=== PATIENT | male | born 1930 | race Caucasian/White ===

== ENCOUNTER → 2016-09-20 | Outpatient (CLI) | payer OTHER ==
[~2016-09-20] MED LIST: ASPI81TA28 PO; CHOL1CAP26 PO; FURO20TA PO; METH1CHW PO
--- NOTE | 2016-09-20 14:19 | DIAGNOSTIC IMAGING REPORT ---
ULTRASOUND LEFT LOWER EXTREMITY VENOUS CLINICAL HISTORY: Left leg pain and swelling. COMPARISON STUDY: Left lower extremity venous ultrasound dated 05/25/2015. TECHNIQUE: Real-time, grayscale, and color Doppler sonography of the deep veins of the left lower extremity was performed from the inguinal crease to the calf. Compression and augmentation were utilized. FINDINGS: There is no sonographic evidence of deep venous thrombosis identified in the left lower extremity. The common femoral, superficial femoral, and popliteal veins are patent and normally compressible. The greater saphenous vein and the profunda femoris vein at the junction with the common femoral vein are clear. The visualized calf veins are patent. IMPRESSION: There is no sonographic evidence of deep venous thrombosis identified in the left lower extremity. Electronically signed by: Clemente Gonzalez M.D. 09/20/2016 2:17 PM Dictated Date/Time: 09/20/2016 2:17 PM
== END | disposition home or self-care (01) ==
LOC: C.ULTRBC 13:26
PROVIDERS: ATTEND Family Medicine
DX: M79.605 Pain in left leg (principal)

== ENCOUNTER → 2016-10-08 | Outpatient (CLI) | payer OTHER ==
[~2016-10-08] VITALS: Ht 175.3 cm; Wt 277.0 kg
[2016-10-08 12:35] VITALS: BP 129/95; PULSE 82; Ht 175.3 cm; Wt 277.0 kg
== END | disposition home or self-care (01) ==
LOC: C.NEUR 12:11
PROVIDERS: ATTEND Internal Medicine Pulmonary Disease
DX: G47.30 Sleep apnea, unspecified (principal); I50.9 Heart failure, unspecified

== ENCOUNTER → 2017-03-04 | Outpatient (CLI) | payer OTHER ==
[2017-03-04 13:45] LABS: ALT/SGPT 33 U/L (12-78); BLOOD UREA NITROGEN 24 mg/dl (7-18); CALCIUM 9.4 mg/dl (8.5-10.1); CARBON DIOXIDE 30 mmol/L (21-32); CHLORIDE 107 mmol/L (98-107); CREATININE 0.92 mg/dl (0.60-1.40); GLUCOSE 113 mg/dl (70-99); POTASSIUM 4.2 mmol/L (3.5-5.1); SODIUM 142 mmol/L (136-145)
[2017-03-04 13:47] LABS: ALB/GLOB RATIO 1.2 (0.9-2); ALKALINE PHOSPHATASE 94 U/L (45-117); AST/SGOT 22 U/L (15-37)
[2017-03-04 14:55] LABS: ESTIMATED AVERAGE GLUCOSE 146 mg/dl; HA1C FLAG Normal (Normal)
== END | disposition home or self-care (01) ==
LOC: C.LAB 11:37
PROVIDERS: ATTEND Family Medicine
DX: E11.9 Type 2 diabetes mellitus without complications (principal); I50.9 Heart failure, unspecified

== ENCOUNTER → 2017-04-08 | Outpatient (CLI) | payer OTHER ==
[~2017-04-08] VITALS: Ht 172.7 cm; Wt 123.0 kg
[2017-04-08 13:48] VITALS: BP 127/83; PULSE 53; Ht 172.7 cm; Wt 123.0 kg
== END | disposition home or self-care (01) ==
LOC: C.NEUR 12:52
PROVIDERS: ATTEND Internal Medicine Pulmonary Disease
DX: G47.30 Sleep apnea, unspecified (principal); I51.7 Cardiomegaly; E66.9 Obesity, unspecified; R06.00 Dyspnea, unspecified

== ENCOUNTER → 2017-06-25 | Outpatient (CLI) | payer OTHER ==
--- NOTE | 2017-06-25 13:52 | DIAGNOSTIC IMAGING REPORT ---
CHEST 2 VIEWS ROUTINE CLINICAL HISTORY: DYSPNEA COMPARISON STUDY: 10/28/2016 FINDINGS: The heart is mildly enlarged. There is no failure. There is no focal pulmonary consolidation. There are no pleural effusions.[ IMPRESSION: No active disease in the chest. Electronically signed by: Mohsen Lal M.D. 06/25/2017 1:51 PM Dictated Date/Time: 06/25/2017 1:50 PM
[2017-06-25 14:55] LABS: HEMATOCRIT 44.3 % (42-52); HEMOGLOBIN 15.1 g/dL (14.0-18.0); MEAN CELL VOLUME 87.2 fL (80-100); MEAN CORPUSCULAR HEMOGLOBIN 29.7 pg (25-34); MEAN CORPUSCULAR HGB CONC 34.1 g/dl (32-36); RED CELL DISTRIBUTION WIDTH CV 13.6 % (11.5-14.5); RED CELL DISTRIBUTION WIDTH SD 43.9 fL (36.4-46.3); WHITE BLOOD COUNT 3.33 K/uL (4.8-10.8)
[2017-06-25 15:04] LABS: ALBUMIN 3.5 gm/dl (3.4-5.0); ALT/SGPT 40 U/L (12-78); BLOOD UREA NITROGEN 16 mg/dl (7-18); CALCIUM 8.9 mg/dl (8.5-10.1); CARBON DIOXIDE 29 mmol/L (21-32); CREATININE 0.94 mg/dl (0.60-1.40); GLUCOSE 118 mg/dl (70-99); POTASSIUM 3.9 mmol/L (3.5-5.1); SODIUM 141 mmol/L (136-145)
[2017-06-25 15:09] LABS: ALKALINE PHOSPHATASE 86 U/L (45-117); AST/SGOT 36 U/L (15-37); TOTAL PROTEIN 6.9 gm/dl (6.4-8.2)
[2017-06-25 15:11] LABS: MEAN PLATELET VOLUME 11.3 fL (7.4-10.4); PLATELET COUNT 93 K/uL (130-400)
[2017-06-26 13:03] LABS: HEMOGLOBIN A1C 6.9 % (4.5-5.6)
[2017-06-27 10:38] LABS: QUANTIF MITOGEN-NIL >10.00 IU/ML; QUANTIFERON NEGATIVE (NEGATIVE)
== END | disposition home or self-care (01) ==
LOC: C.RAD 12:26
PROVIDERS: ATTEND Family Medicine
DX: R06.00 Dyspnea, unspecified (principal)

== ENCOUNTER → 2017-07-07 | Outpatient (CLI) | payer OTHER ==
--- NOTE | 2017-07-07 15:51 | ECHOCARDIOGRAM REPORT ---
*NOTICE TO RECEIVING CONSTITUTION PARTY AGENCY This information is strictly Confidential and protected under [place] law. [place] law prohibits you from making any further disclosure of this information unless further disclosure is expressly permitted by the written consent of the person to whom it pertains or is authorized by law. A general authorization for the release of medical or other information is not sufficient for this purpose. Hospital accepts no responsibility if the information is made available to any other person, INCLUDING THE PATIENT. Interpretation Summary * Name: CLAUDIO LEIGH Study Date: 07/07/2017 12:38 PM BP: 131/75 mmHg * Patient Location: [facility] HR: 82 * : 1930 (M/d/yyyy) Gender: Male Height: 67 in * Age: 86 yrs Ethnicity: [place] Weight: 271 lb * Ordering Physician: Alberto Gunn * Referring Physician: Alberto Gunn * Performed By: Noni Scott RDCS * * Reason For Study: Cardiomyopathy * BSA: 2.3 m2 * -- Conclusions -- * Technically difficult study * 1. Normal LV size. Mild concentric LVH. * 2. Normal LV systolic function. LVEF 60-65%. No regional wall motion abnormalities. * 3. Normal RV size and function. * 4. No significant valvular pathology. * 5. Diastolic dysfunction. * 6. Mild pulmonary hypertension. Est PASP >45 mmHg * 7. No prior studies for comparison. Procedure Details * A complete two-dimensional transthoracic echocardiogram was performed (2D, M-mode, Doppler and color flow Doppler). Left Ventricle * The left ventricle is grossly normal size. * There is mild concentric left ventricular hypertrophy. * Ejection Fraction = 60-65%. * No regional wall motion abnormalities noted. Right Ventricle * The right ventricle is grossly normal size. * The right ventricular systolic function is normal as assessed by tricuspid annular plane systolic excursion (TAPSE) (normal >1.5 cm). Atria * The left atrium is mildly dilated. * Right atrial size is normal. * No ASD detected; PFO is not assessed. Mitral Valve * The mitral valve is grossly normal. * There is no mitral valve stenosis. * There is trace mitral regurgitation. Tricuspid Valve * The tricuspid valve is not well visualized, but is grossly normal. * There is trace tricuspid regurgitation. * Est PASP 40-45 mmHg. Aortic Valve * The aortic valve opens well. * The aortic valve is trileaflet. * No hemodynamically significant valvular aortic stenosis. * There is no significant aortic regurgitation. Pulmonic Valve * The pulmonary valve is inadequately visualized, but the Doppler data is adequate for interpretation. * There is no pulmonic valvular stenosis. * There is no pulmonic valvular regurgitation. Great Vessels * The aortic root and proximal ascending aorta are normal sized. Pericardium/Pleural * There is no pericardial effusion. Left Ventricular Diastolic Function * Diastolic dysfunction MMode 2D Measurements and Calculations IVSd 1.4 cm IVSs 1.8 cm LVIDd 4.8 cm LVIDs 3.1 cm LVPWd 1.6 cm LVPWs 1.6 cm IVS/LVPW 0.89 FS 36.0 % EDV(Teich) 108.0 ml ESV(Teich) 37.3 ml EF(Teich) 65.5 % EDV(cubed) 111.3 ml ESV(cubed) 29.2 ml EF(cubed) 73.8 % % IVS thick 28.3 % % LVPW thick 4.9 % LV mass(C)d 293.5 grams LV mass(C)dI 127.6 grams/m\S\2 LV mass(C)s 201.8 grams LV mass(C)sI 87.7 grams/m\S\2 SV(Teich) 70.8 ml SI(Teich) 30.8 ml/m\S\2 SV(cubed) 82.1 ml SI(cubed) 35.7 ml/m\S\2 Ao root diam 3.0 cm Ao root area 7.3 cm\S\2 ACS 2.2 cm LA dimension 5.4 cm LA/Ao 1.8 LVAd ap4 28.2 cm\S\2 LVLd ap4 7.9 cm EDV(MOD-sp4) 93.8 ml EDV(sp4-el) 84.8 ml LVAs ap4 12.9 cm\S\2 LVLs ap4 5.7 cm ESV(MOD-sp4) 29.2 ml ESV(sp4-el) 24.9 ml EF(MOD-sp4) 68.9 % EF(sp4-el) 70.6 % LVAd ap2 21.9 cm\S\2 LVLd ap2 7.6 cm EDV(MOD-sp2) 58.3 ml EDV(sp2-el) 53.5 ml LVAs ap2 12.0 cm\S\2 LVLs ap2 6.4 cm ESV(MOD-sp2) 25.2 ml ESV(sp2-el) 19.4 ml EF(MOD-sp2) 56.7 % EF(sp2-el) 63.8 % LVLd %diff -4.20 % EDV(MOD-bp) 75.5 ml LVLs %diff 10.8 % ESV(MOD-bp) 28.4 ml EF(MOD-bp) 62.4 % SV(MOD-sp4) 64.6 ml SI(MOD-sp4) 28.1 ml/m\S\2 SV(MOD-sp2) 33.0 ml SI(MOD-sp2) 14.4 ml/m\S\2 SV(MOD-bp) 47.1 ml SI(MOD-bp) 20.5 ml/m\S\2 SV(sp4-el) 59.9 ml SI(sp4-el) 26.0 ml/m\S\2 SV(sp2-el) 34.1 ml SI(sp2-el) 14.8 ml/m\S\2 Doppler Measurements and Calculations MV E max laura 111.3 cm/sec MV dec time 0.22 sec Ao V2 max 110.5 cm/sec Ao max PG 5.0 mmHg Ao max PG (full) 2.8 mmHg LV V1 max PG 2.2 mmHg LV V1 max 74.4 cm/sec MR max laura 495.0 cm/sec MR max PG 98.0 mmHg MR mean laura 365.3 cm/sec MR mean PG 60.4 mmHg MR VTI 147.1 cm PA V2 max 98.6 cm/sec PA max PG 3.9 mmHg TR max laura 304.7 cm/sec
== END | disposition home or self-care (01) ==
LOC: C.CPL 12:28
PROVIDERS: ATTEND Family Medicine
DX: I42.9 Cardiomyopathy, unspecified (principal)

== ENCOUNTER → 2017-07-14 | Outpatient (CLI) | payer OTHER ==
--- NOTE | 2017-07-14 16:55 | DIAGNOSTIC IMAGING REPORT ---
CT CT HIGH RISK DIAGNOSTIC CHEST WITH COMPUTER-AIDED DETECTION (CAD) CLINICAL HISTORY: INTERSTITIAL PNEUMONITIS *HIGH RESOLUTION* COMPARISON STUDY: Chest CT 11/15/2014. CT DOSE: 986.32 mGy.cm TECHNIQUE: Axial images of the chest were obtained without IV contrast. Images were reviewed in the axial, sagittal, and coronal planes. IV contrast was not administered for this examination. A dose lowering technique was utilized adhering to the principles of ALARA. FINDINGS: No pneumothorax. No pleural effusions. A 5 mm subpleural nodule within the left lower lobe in image 185 remains stable and is therefore considered to be benign. Calcified granuloma within the left upper lobe on image 118. No new or suspicious pulmonary nodules. Linear densities at the right middle lobe likely represent scarring. No focal lung consolidations to suggest pneumonia. Minimal subpleural reticulation at the lung bases, unchanged. There is also mild diffuse bronchiectasis. No suspicious lytic or blastic osseous lesions. No mediastinal, hilar, or axillary lymphadenopathy. A few calcified left hilar lymph nodes. Trace pericardial fluid anteriorly. The heart is normal in size. Normal caliber thoracic aorta demonstrating mild calcified plaque. Stable hypodense lesions within the liver. The long-term stability is consistent with benignity. This likely represents a cyst. Cholecystectomy. The visualized spleen and adrenal glands are unremarkable. Stable hypodense lesions within the right kidney and stable hyperdense lesions within the left kidney. These are also likely benign given the long-term stability. IMPRESSION: 1. No new or suspicious pulmonary nodules. 2. No change in the minimal subpleural reticulation at the lung bases and mild bronchiectasis. 3. Additional chronic findings as described above. CAD FINDINGS: Overall Lung RADS Category: Lung RADS Management Recommendation: - Resume annual lung cancer screening. Lung RADS Follow Up Date: Lung RADS Nodule ID:
== END | disposition home or self-care (01) ==
LOC: C.CTS 16:02
PROVIDERS: ATTEND Family Medicine
DX: J84.89 Other specified interstitial pulmonary diseases (principal)

== ENCOUNTER → 2017-07-17 | Outpatient (CLI) | payer OTHER ==
--- NOTE | 2017-07-18 19:31 | PULMONARY FUNCTION TEST ---
CLINICAL DATA: An 86-year-old male with height of 68 inches and weight of 270 pounds, referred by Dr. Gunn for evaluation of shortness of breath and pulmonary hypertension. Spirometry pre- and post-bronchodilator, lung volumes, and DLCO were performed. FINDINGS: Prebronchodilator spirometry demonstrates very mild small airway obstruction. FVC was 93% of predicted. FEV1 was 93% of predicted. FEF 25-75 was 76% of predicted. There was improvement after inhaled bronchodilator. FVC improved 5% to 98% of predicted. FEV1 improved 15% to 107% of predicted. FEF 25-75 improved 79% to 135% of predicted. Lung volumes did not show any evidence of air trapping. Expiratory reserve volume was reduced to 57% of predicted due to obesity. DLCO was normal at 86% of predicted. IMPRESSION: Very mild obstructive small airways disease with improvement after inhaled bronchodilator. Reduction in expiratory reserve volume due to obesity. Normal DLCO. MTDD
== END | disposition home or self-care (01) ==
LOC: C.RC 11:06
PROVIDERS: ATTEND Family Medicine
DX: R06.00 Dyspnea, unspecified (principal); I27.20 Pulmonary hypertension, unspecified

== ENCOUNTER → 2017-10-07 | Outpatient (CLI) | payer OTHER ==
[~2017-10-07] VITALS: Ht 174 cm; Wt 122.6 kg
[2017-10-07 15:49] VITALS: BP 130/70; PULSE 86; Ht 174 cm; Wt 122.6 kg
== END | disposition home or self-care (01) ==
LOC: C.NEUR 14:25
PROVIDERS: ATTEND Internal Medicine Pulmonary Disease
DX: G47.30 Sleep apnea, unspecified (principal); E66.9 Obesity, unspecified; I48.0 Paroxysmal atrial fibrillation

== ENCOUNTER → 2017-12-26 | Outpatient (CLI) | payer OTHER ==
[~2017-12-26] MED LIST changes: -CHOL1CAP26 PO; -FURO20TA PO; +LSX80 PO; +METF-384 PO; -METH1CHW PO; +METO25TA3 PO; +TRAM-10 PO
[2017-12-26 18:43] LABS: HEMATOCRIT 41.2 % (42-52); HEMOGLOBIN 14.2 g/dL (14.0-18.0); MEAN CELL VOLUME 86.7 fL (80-100); MEAN CORPUSCULAR HEMOGLOBIN 29.9 pg (25-34); MEAN CORPUSCULAR HGB CONC 34.5 g/dl (32-36); MEAN PLATELET VOLUME 10.6 fL (7.4-10.4); PLATELET COUNT 127 K/uL (130-400); RED CELL DISTRIBUTION WIDTH CV 14.1 % (11.5-14.5); RED CELL DISTRIBUTION WIDTH SD 44.1 fL (36.4-46.3)
[2017-12-26 19:22] LABS: ALBUMIN 3.5 gm/dl (3.4-5.0); ALKALINE PHOSPHATASE 134 U/L (45-117); ALT/SGPT 28 U/L (12-78); AST/SGOT 22 U/L (15-37); BLOOD UREA NITROGEN 19 mg/dl (7-18); CALCIUM 8.8 mg/dl (8.5-10.1); CARBON DIOXIDE 29 mmol/L (21-32); CREATININE 0.95 mg/dl (0.60-1.40); GLUCOSE 143 mg/dl (70-99); SODIUM 141 mmol/L (136-145)
[2017-12-27 06:18] LABS: HEMOGLOBIN A1C 6.7 % (4.5-5.6)
== END | disposition home or self-care (01) ==
LOC: C.LAB 17:34
PROVIDERS: ATTEND Family Medicine
DX: R07.9 Chest pain, unspecified (principal)